=== PATIENT | male | born 1985 | race Caucasian/White ===

== ENCOUNTER 2020-07-14 07:57 | Inpatient (IN) | payer OTHER ==
[~2020-07-14] VITALS: Ht 177.8 cm; Wt 71.7 kg
[2020-07-14 08:01] VITALS: BP 152/96
[2020-07-14 08:26] LABS: HEMATOCRIT 40.8 % (42.0-52.0); HEMOGLOBIN 13.7 gm/dL (14.0-18.0); MCH 28.3 pg (26.0-34.0); MCHC 33.6 g/dL (28.0-37.0); MCV 84.2 fL (80.0-100.0); MPV 6.6 fl. (7.2-11.1); NUCLEATED RBCS 0 /100WBC; PLATELET COUNT* 374 thou/uL (150-400); RBC 4.85 mil/uL (4.50-6.00); RDW-CV 13.3 % (10.5-14.5)
[2020-07-14 08:34] LABS: CALCIUM 9.3 mg/dL (8.5-10.1); CREATININE 0.9 mg/dL (0.6-1.3); POTASSIUM 4.1 mmol/L (3.5-5.1)
[2020-07-14 08:39] LABS: ALBUMIN 2.5 g/dL (3.4-5.0); MAGNESIUM 1.7 mg/dL (1.8-2.4); TOTAL BILIRUBIN 0.7 mg/dL (<0.1-1.0); TOTAL PROTEIN 8.2 g/dL (6.4-8.2)
[2020-07-14 08:57] LABS: ABSOLUTE LYMPHOCYTES 0.7 thou/uL (0.8-5.3); ABSOLUTE MONOCYTES 2.2 thou/uL (0.0-1.2); ABSOLUTE NEUTROPHILS 19.1 thou/uL (1.6-8.1); PLATELET ESTIMATE ADEQUATE
[2020-07-14 13:50] VITALS: BP 121/84
--- NOTE | 2020-07-14 14:15 | EKG ---
[place] [address] ELECTROCARDIOGRAM REPORT Name: GILLTRANG Figueroa Room: [address] ADM IN [facility]#: [id number] Admission: 07/14/20 Attend Phys: Stella Buck MD Discharge: Date of : 89 Date of Service: 07/14/20 0800 Report #: [id number] THIS REPORT FOR: //name// ED Test Date: 2020-07-14 Test Time: 08:00:08 Pat Name: TRANG GARLAND Department: Room: [facility] Gender: M Radiology Manager: : [id number] Requested By: Efren Cesar Order Number: [id number] MD: Andrew Montiel Measurements Intervals [place] Rate: 101 P: 76 HI: 112 QRS: 63 QRSD: 85 T: 32 QT: 329 QTc: 427 Interpretive Statements Sinus tachycardia No previous ECG available for comparison Electronically Signed On 07-14-2020 14:14:59 CDT by Andrew Montiel [email or web address] <ELECTRONICALLY SIGNED> By: Andrew Montiel MD, [facility] 07/14/20 1414 08 08 Andrew Montiel MD, [facility] /EPI
[2020-07-14] MEDS ORDERED: AUGMENTIN 875-1 EACH PO (16:34)
[2020-07-14] MEDS ORDERED: HYDROCODON-ACE1 EAC7 PO (16:34)
== END 2020-07-14 16:18 | disposition left against medical advice (07) | DRG 194 ==
LOC: M.ERS 07:57 → M.TBA-ER 10:23 → M.2W 14:01
PROVIDERS: Emergency Medicine Emergency Medical Services; ADMIT Family Medicine; ATTEND Family Medicine
DX: J18.9 Pneumonia, unspecified organism (principal); E87.1 Hypo-osmolality and hyponatremia; Y92.89 Other specified places as the place of occurrence of the external cause; D72.829 Elevated white blood cell count, unspecified; Z53.29 Procedure and treatment not carried out because of patient's decision for other reasons; Z20.822 Contact with and (suspected) exposure to COVID-19; S20.219A Contusion of unspecified front wall of thorax, initial encounter; X58.XXXA Exposure to other specified factors, initial encounter; Y93.89 Activity, other specified; Y99.8 Other external cause status; Z59.0 Homelessness